=== PATIENT | female | born 1955 | race Caucasian/White ===

== ENCOUNTER 2019-09-18 10:10 | Inpatient (IN) | payer OTHER ==
[~2019-09-18] VITALS: Ht 157.5 cm; Wt 63.5 kg
--- NOTE | 2019-09-18 10:15 | NUR ---
bibfriend, c/o chest stabbing, pressure pain 10/10ps started 8pm non radiating. Patient a/ox4, breathing even and unlabored, no sob noted, kept comfortable, needs attended. Attached to the monitoring coordinator.
[2019-09-18] MEDS ORDERED: ESTR1TAB17 PO (10:36)
[2019-09-18] MEDS ORDERED: IRBE1TAB41 PO (10:36)
[2019-09-18] MEDS ORDERED: ESOM20CA PO (10:36)
[2019-09-18] MEDS ORDERED: SERT25TA PO (10:36)
[2019-09-18 10:37] LABS: BASOPHILS % (AUTO) 0.8 % (0.0-2.0); EOSINOPHILS % (AUTO) 1.1 % (0.0-6.0); HEMATOCRIT 42 % (33-45); HEMOGLOBIN 13.9 g/dL (11.5-14.8); LYMPHOCYTES # (AUTO) 1.5 /CMM (0.8-4.8); LYMPHOCYTES % (AUTO) 24.1 % (20.0-44.0); MEAN CORPUSCULAR HGB CONC 33 g/dl (31.0-36.0); MEAN CORPUSCULAR VOLUME 88 fL (82-100); MONOCYTES # (AUTO) 0.5 /CMM (0.1-1.30); MONOCYTES % (AUTO) 8.5 % (2.0-12.0); NEUTROPHILS % (AUTO) 65.5 % (43.0-81.0); PLATELET COUNT (AUTO) 335 /CMM (150-450); RED BLOOD CELL COUNT(AUTO) 4.71 MIL/uL (4.0-5.2); WHITE BLOOD COUNT (AUTO) 6.2 K/uL (4.3-11.0)
[2019-09-18] MEDS ORDERED: TRAM50TA2 PO (10:37)
[2019-09-18] MEDS ORDERED: ALEN70TA6 PO (10:38)
[2019-09-18] MEDS ORDERED: MAG HYDROX/AL HYDROX/SIMETH 30 ML UDC ONE (10:39)
[2019-09-18] MEDS ORDERED: LIDOCAINE VISCOUS 2% UD 15 ML UDC ONE (10:39)
[2019-09-18] MEDS ORDERED: HYDROCODONE/APAP 5/325MG 1 EACH TABLET ONE (10:46)
[2019-09-18 10:48] LABS: CALCIUM, SERUM 9.6 mg/dL (8.5-10.1); CARBON DIOXIDE 29 mmol/L (21-32); CHLORIDE 102 mmol/L (98-107); CREATININE 0.9 mg/dL (0.6-1.3); GLUCOSE 112 mg/dL (74-106); SODIUM SERUM 140 mmol/L (136-145); UREA NITROGEN, BLOOD 20 mg/dL (7-18)
[2019-09-18] MEDS ORDERED: HYDROCODONE/APAP 5/325MG 1 EACH TABLET PO ONE (11:00)
[2019-09-18] MEDS ORDERED: MAG HYDROX/AL HYDROX/SIMETH 30 ML UDC PO ONE (11:00)
[2019-09-18] MEDS ORDERED: LIDOCAINE VISCOUS 2% UD 15 ML UDC MM ONE (11:00)
--- NOTE | 2019-09-18 11:00 | NUR ---
CALLED NURSING SUP FOR TELE BED.
--- NOTE | 2019-09-18 11:03 | NUR ---
patient c/o worsening chest pain and blurry vision, dr. holden made aware.
[2019-09-18 11:04] LABS: ALANINE AMINOTRANSFERASE 27 U/L (12-78); ALBUMIN 4.1 g/dL (3.4-5.0); ALKALINE PHOSPHATASE 43 U/L (46-116); ASPARTATE AMINOTRANSFERASE 20 U/L (15-37); B-TYPE NATRIURETIC PEPTIDE 159 PG/ML (0-125); BILIRUBIN,DIRECT 0.1 mg/dL (0.0-0.2); BILIRUBIN,TOTAL 0.4 mg/dL (0.2-1.0); TOTAL PROTEIN, SERUM 7.5 g/dL (6.4-8.2)
[2019-09-18] MEDS ORDERED: NITROGLYCERIN 0.4 MG/TAB BOTTLE ONE ×2 (11:07→13:58)
[2019-09-18] MEDS ORDERED: ASPIRIN 81 MG TAB.CHEW ONE (11:08)
--- NOTE | 2019-09-18 11:23 | NUR ---
NURSING SUP GAVE TELE BED 325-1.
[2019-09-18] MEDS ORDERED: NITROGLYCERIN 0.4 MG/TAB BOTTLE SL ONE (11:30)
[2019-09-18] MEDS ORDERED: ASPIRIN 81 MG TAB.CHEW PO ONE (11:30)
--- NOTE | 2019-09-18 12:59 | NUR ---
report given to coby hameed.
[2019-09-18] MEDS ORDERED: ACETAMINOPHEN 325 MG TABLET PO PRN (13:00)
[2019-09-18] MEDS ORDERED: IRBESARTAN PO SCH (13:00)
[2019-09-18] MEDS ORDERED: MORPHINE SULFATE INJ 2 MG/ML DISP.SYRIN IV PRN (13:00)
[2019-09-18] MEDS ORDERED: MAG HYDROX/AL HYDROX/SIMETH 30 ML UDC PO PRN (13:00)
[2019-09-18] MEDS ORDERED: MAGNESIUM HYDROXIDE 30 ML UDC PO PRN (13:00)
[2019-09-18] MEDS ORDERED: HYDROCODONE/APAP 5/325MG 1 EACH TABLET PO PRN (13:00)
[2019-09-18] MEDS ORDERED: ONDANSETRON HCL/PF 4 MG/2 ML VIAL IVP PRN (13:00)
[2019-09-18] MEDS ORDERED: HYDROCHLOROTHIAZIDE PO SCH (13:00)
[2019-09-18] MEDS ORDERED: ZOLPIDEM TARTRATE 5 MG TABLET PO PRN (13:00)
[2019-09-18] MEDS ORDERED: NITROGLYCERIN 0.4 MG/TAB BOTTLE SL PRN ×2 (13:00→14:00)
--- NOTE | 2019-09-18 13:35 | NUR ---
PATIENT TRANSFERRED TO ROOM 325-1 VIA ACLS PROTOCOL. NO DISTRESS NOTED. NEEDS ATTENDED, ENDORSED TO LENNY MISHRA. PATIENT WAS SEEN BY DR. CORTES GAS STATION OPERATOR KENNY TO BE TRANSFERRED.
--- NOTE | 2019-09-18 13:40 | NUR ---
MIXER OPERATORGENERATOR TECHNICIAN NOTE PATIENT ARRIVED BY BED FROM ER. PATIENT AMBULATORY TO BED WITH STEADY GAIT. PATIENT IN NO ACUTE DISTRESS. NO SOB NOTED. PATIENT BREATHING IS EVEN AND UNLABORED. PATIENT HAS EXPRESSED ANXIETY FOR HOSPITALIZATION BUT IS TOLERATING WELL AT THIS TIME. SISTER AT THE BEDSIDE. PATIENT BED IS LOCKED AND IN LOWEST POSITION. CALL LIGHT WITHIN REACH. ERIBERTO MELGAR MADE AWARE OF PATIENTS ARRIVAL, ORDERS IN PLACE. WILL CONTINUE TO MONITOR.
[2019-09-18 13:45] VITALS: BP 153/88
[2019-09-18 13:45] LABS: D-DIMER 0.24 mg/L(FEU (0.17-0.50)
[2019-09-18] MEDS ORDERED: CT SWABBABLE VALVE TRANS SET 1 EA INFUS.SET MC ONE (13:57)
[2019-09-18] MEDS ORDERED: IV NS 0.9% 250 ML IV ONE (13:57)
[2019-09-18] MEDS ORDERED: IOHEXOL-350 100 ML VIAL IV ONE (13:57)
[2019-09-18] MEDS ORDERED: METOPROLOL TARTRATE INJ 5 MG/5 ML AMPUL ONE (13:58)
[2019-09-18] MEDS ORDERED: TRAMADOL HCL 50 MG TABLET PO SCH (14:00)
[2019-09-18] MEDS ORDERED: METOPROLOL TARTRATE INJ 5 MG/5 ML AMPUL IVP PRN (14:00)
[2019-09-18] MEDS ORDERED: ASPIRIN 81 MG TAB.CHEW PO SCH (14:00)
[2019-09-18] MEDS ORDERED: ATORVASTATIN 10 MG TABLET PO SCH (14:00)
[2019-09-18] MEDS ORDERED: ESOMEPRAZOLE MAG TRIHYDRATE 20 MG CAPSULE.DR PO SCH (14:00)
[2019-09-18] MEDS: IV NS 0.9% 1,000 ML IV PRN (14:19)
--- NOTE | 2019-09-18 14:39 | NUR ---
RN NOTES: Patient CTA procedure, Patient signed consent, Able to tolerate the procedure and denies and discomfort. Patient trnasferred back to her room, report given to primary nurse.
--- NOTE | 2019-09-18 15:00 | NUR ---
COAL DELIVERER NOTE PATIENT ON CARDIAC MONITORING READING SINUS RHYTHM HR 61. PATIENT REFUSES TO HAVE SKIN ASSESSMENT. EDUCATED RISKS VS BENEFITS. PATIENT CONTINUED TO REFUSE.
[2019-09-18] MEDS: VALSARTAN 80 MG TABLET PO SCH (15:19)
[2019-09-18 16:00] VITALS: BP 153/88
[2019-09-18] MEDS: METOPROLOL TARTRATE 50 MG TABLET PO SCH (17:07)
--- NOTE | 2019-09-18 18:48 | NUR ---
DIAMOND POLISHER CLOSING NOTE PATIENT IN BED RESTING COMFORTABLE. PATIENT IN NO ACUTE DISTRESS. NO SOB NOTED. PATIENT BREATHING IS EVEN AND UNLABORED. PATIENT STATES NO CHEST PAIN AT THIS TIME. PATIENT NEEDS AND CONCERNS ADDRESSED. PATIENT KEPT CLEAN AND DRY THROUGHOUT MY SHIFT. PATIENT ON CARDIAC MONITORING READING SINUS RHYTHM HR 64. PATIENT BED IS LOCKED AND IN LOWEST POSITION. CALL LIGHT WITHIN REACH. WILL ENDORSE CARE TO PM SHIFT FOR AILEEN.
--- NOTE | 2019-09-18 19:32 | NUR ---
RETOUCHER PHOTOENGRAVING OPENING NOTES PATIENT RECEIVED RESTING IN BED A/O X 4 WITH VISITOR AT BEDSIDE. STABLE ON RA WITH BREATHING EVEN AND UNLABORED, NO SOB NOTED. NO SIGNS OF ACUTE DISTRESS. NO COMPLAINTS OF PAIN OR DISCOMFORT. TELE MONITOR READING SR HR 65. IV LOCATED ON R AC #18 RUNNING NS @ 125 ML/HR. SAFETY PRECAUTIONS IN PLACE WITH BED IN LOWEST POSITION, CALL LIGHT WITHIN REACH, SIDE RAILS UP, AND BREAKS. WILL CONTINUE TO MONITOR THROUGHOUT THE NIGHT.
[2019-09-18 20:00] VITALS: BP 108/73
[2019-09-19] VITALS: BP 120/75
[2019-09-19 00:01] VITALS: BP 120/75
[2019-09-19] MEDS: METOPROLOL TARTRATE 50 MG TABLET PO SCH ×2 (00:10→06:00)
--- NOTE | 2019-09-19 00:18 | NUR ---
MEAT BONER AND SLICER NOTES PRN YOBANY ADMINISTERED PER PATIENT REQUEST. WILL CONTINUE TO MONITOR.
[2019-09-19 04:00] VITALS: BP_SYST 110; BP_SYST 123; BP_DIAS 66; BP_DIAS 68
[2019-09-19] MEDS: IV NS 0.9% 1,000 ML IV PRN (06:00)
--- NOTE | 2019-09-19 06:30 | NUR ---
PHYS ASST CLOSING NOTE PATIENT IN BED RESTING COMFORTABLE A/O X4. PATIENT IN NO ACUTE DISTRESS. NO SOB NOTED. PATIENT BREATHING IS EVEN AND UNLABORED, STABLE ON RA . PATIENT STATES NO CHEST PAIN AT THIS TIME. PATIENT NEEDS AND CONCERNS ADDRESSED. PATIENT KEPT CLEAN AND DRY THROUGHOUT MY SHIFT. PATIENT ON CARDIAC MONITORING READING SINUSBRADY HR 50-60. PATIENT BED IS LOCKED AND IN LOWEST POSITION. CALL LIGHT WITHIN REACH. WILL ENDORSETO ONCOMING SHIFT FOR AILEEN.
[2019-09-19 06:59] LABS: BASOPHILS % (AUTO) 0.6 % (0.0-2.0); EOSINOPHILS % (AUTO) 1.8 % (0.0-6.0); HEMATOCRIT 39 % (33-45); HEMOGLOBIN 12.8 g/dL (11.5-14.8); LYMPHOCYTES # (AUTO) 1.1 /CMM (0.8-4.8); LYMPHOCYTES % (AUTO) 17.7 % (20.0-44.0); MEAN CORPUSCULAR HGB CONC 33 g/dl (31.0-36.0); MEAN CORPUSCULAR VOLUME 89 fL (82-100); MONOCYTES # (AUTO) 0.5 /CMM (0.1-1.30); MONOCYTES % (AUTO) 8.8 % (2.0-12.0); NEUTROPHILS # (AUTO) 4.4 /CMM (1.8-8.9); NEUTROPHILS % (AUTO) 71.1 % (43.0-81.0); PLATELET COUNT (AUTO) 271 /CMM (150-450); RED BLOOD CELL COUNT(AUTO) 4.42 MIL/uL (4.0-5.2); WHITE BLOOD COUNT (AUTO) 6.2 K/uL (4.3-11.0)
--- NOTE | 2019-09-19 07:10 | NUR ---
COIL WINDING SUPERVISOR OPENING NOTES RECEIVED PT IN BED, ASLEEP, EASILY AROUSED, A/O X4. PT TOLERATING RA, WITH NO ACUTE RESPIRATORY DISTRESS NOTED. PT DENIES ANY PAIN OR DISCOMFORT AT THIS TIME. PT ALSO DENIES ANY CONCERNS OR QUESTIONS AT THE MOMENT. ON TELEMONITORING SB 55. IVF NS AT 125MLHR TO RAC G20, INTACT AND FLUID INFUSING WELL. PT KEPT COMFORTABLE IN BED. CALL LIGHT KEPT WITHIN REACH. PT'S BED IN LOWEST LOCKED POSITION WITH SR X3. WILL CONTINUE PLAN OF CARE.
[2019-09-19 07:29] LABS: CALCIUM, SERUM 8.6 mg/dL (8.5-10.1); CREATININE 0.8 mg/dL (0.6-1.3); MAGNESIUM 2.1 mg/dL (1.8-2.4); PHOSPHORUS 3.3 mg/dL (2.5-4.9); POTASSIUM 4.2 mmol/L (3.5-5.1)
[2019-09-19] MEDS ORDERED: PANTOPRAZOLE 40 MG TABLET.DR PO SCH (07:30)
[2019-09-19 07:33] LABS: THYROID STIMULATING HORMONE 1.217 uIU/mL (0.358-3.74)
[2019-09-19 08:00] VITALS: BP 133/84
[2019-09-19] MEDS ORDERED: METOPROLOL SUCCINATE 50 MG TAB.SR.24H PO SCH (09:00)
[2019-09-19] MEDS ORDERED: ASPIRIN 81 MG TAB.CHEW PO SCH (09:00)
[2019-09-19] MEDS ORDERED: SERTRALINE HCL 25 MG TABLET PO SCH (09:00)
[2019-09-19] MEDS ORDERED: ESTRADIOL 1 MG TABLET PO SCH (09:00)
[2019-09-19 09:14] VITALS: BP 138/84
[2019-09-19] MEDS: VALSARTAN 80 MG TABLET PO SCH (09:14)
--- NOTE | 2019-09-19 09:19 | NUR ---
MS RN NOTES METOPROLOL SCHEDULED MEDICINE AT 9AM NOT GIVEN TO PT DUE TO LOW HR OF 54. PT MADE AWARE. WILL CONTINUE TO MONITOR.
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
[2019-09-19] MEDS ORDERED: SERT25TA PO (13:45)
[2019-09-19] MEDS ORDERED: SUCR1TAB31 PO (13:45)
--- NOTE | 2019-09-19 15:05 | NUR ---
MS SLUDGE FILTRATION OPERATOR NOTES PT GOING HOME, A/O X4, AMBULATORY. PT TOLERATING RA, WITH NO ACUTE RESPIRATORY DISTRESS NOTED. PT DENIES ANY PAIN OR DISCOMFORT AT THE TIME OF DISCHARGE. PIV TO RAC G20, REMOVED AND APPLIED PRESSURE DRESSING. DISCHARGE PAPERS AND INVENTORY LIST, REVIEWED AND SIGNED BY PT; ALL BELONGINGS WITH THE PT. ALL NEEDS AND CARE ATTENDED. PT REMINDED FOR FOLLOW UP APPOINTMENTS WITH PCP AND COMMODITIES TRADER IN A WEEK. PT'S VITALS STABLE AND RECORDED. PT LEFT THE UNIT AT 1505. HOSPITALIST/NN AND CN/NB AWARE OF PT'S DISCHARGE.
--- NOTE | 2019-09-19 15:07 | NUR ---
MS RN NOTES PT'S SKIN INTACT, NO PICTURES TAKEN AND FILED IN THE CHART.
== END 2019-09-19 15:05 | disposition home or self-care (01) | DRG 206 ==
LOC: ER 10:18 → TELE 11:58 → MED 09-19 09:08
PROVIDERS: ADMIT Nurse Practitioner Acute Care; ATTEND Nurse Practitioner Acute Care
DX: M94.0 Chondrocostal junction syndrome [Tietze] (principal); I10 Essential (primary) hypertension; K21.9 Gastro-esophageal reflux disease without esophagitis; M81.0 Age-related osteoporosis without current pathological fracture; F32.9 Major depressive disorder, single episode, unspecified; Z90.49 Acquired absence of other specified parts of digestive tract; Z90.710 Acquired absence of both cervix and uterus; F41.0 Panic disorder [episodic paroxysmal anxiety]; F12.90 Cannabis use, unspecified, uncomplicated; Z88.1 Allergy status to other antibiotic agents; Z91.018 Allergy to other foods; Z79.83 Long term (current) use of bisphosphonates
CPT/HCPCS: 36415; 71045-TC; 75574; 80048-TC; 80061-TC; 80076-TC; 83735-TC; 83880; 84100-TC; 84443-TC; 84484-TC; 85025-TC; 85378-TC; 85730-TC; 87081-TC; 93307-TC; G0378; J3490; J7030; J7050; Q9967